=== PATIENT | male | born 1950 | race Caucasian/White ===

== ENCOUNTER 2023-11-14 10:06 | Outpatient (CLI) | payer MEDICARE, BC, SELFPAY | END 2023-11-14 10:07 | disposition home or self-care (01) | LOC: WOUND 10:07 | PROVIDERS: PCP Family Medicine; Visit Provider Family Medicine | DX: S61.211A Laceration without foreign body of left index finger without damage to nail, initial encounter (principal); S61.213A Laceration without foreign body of left middle finger without damage to nail, initial encounter; W27.8XXA Contact with other nonpowered hand tool, initial encounter | CPT/HCPCS: 97602; G0463 ==

== ENCOUNTER 2023-11-19 08:25 | Outpatient (CLI) | payer MEDICARE, BC, SELFPAY | END 2023-11-19 08:26 | disposition home or self-care (01) | LOC: WOUND 08:25 | PROVIDERS: PCP Family Medicine; Visit Provider Nurse Practitioner Family | DX: S61.213A Laceration without foreign body of left middle finger without damage to nail, initial encounter (principal); S62.211A Bennett's fracture, right hand, initial encounter for closed fracture; W27.8XXA Contact with other nonpowered hand tool, initial encounter; S61.211A Laceration without foreign body of left index finger without damage to nail, initial encounter | CPT/HCPCS: 11042; 97602 ==

== ENCOUNTER 2023-11-28 10:21 | Outpatient (CLI) | payer MEDICARE, BC, SELFPAY | END 2023-11-28 10:22 | disposition home or self-care (01) | LOC: WOUND 10:21 | PROVIDERS: PCP Family Medicine; Visit Provider Nurse Practitioner Family | DX: S61.211A Laceration without foreign body of left index finger without damage to nail, initial encounter (principal); S61.213A Laceration without foreign body of left middle finger without damage to nail, initial encounter; W27.8XXA Contact with other nonpowered hand tool, initial encounter | CPT/HCPCS: 11042 ==

== ENCOUNTER 2023-12-05 08:24 | Outpatient (CLI) | payer MEDICARE, BC, SELFPAY | END 2023-12-05 08:25 | disposition home or self-care (01) | LOC: WOUND 08:24 | PROVIDERS: PCP Family Medicine; Visit Provider Nurse Practitioner Family | DX: S61.211A Laceration without foreign body of left index finger without damage to nail, initial encounter (principal); W27.8XXA Contact with other nonpowered hand tool, initial encounter | CPT/HCPCS: 97602; G0463 ==

== ENCOUNTER 2023-12-19 09:50 | Outpatient (CLI) | payer MEDICARE, BC, SELFPAY | END 2023-12-19 09:51 | disposition home or self-care (01) | LOC: WOUND 09:50 | PROVIDERS: PCP Family Medicine; Visit Provider Nurse Practitioner Family | DX: S61.211D Laceration without foreign body of left index finger without damage to nail, subsequent encounter (principal) | CPT/HCPCS: G0463 ==